=== PATIENT | female | born 1950 | race African-American/Black ===

== ENCOUNTER 2017-01-13 05:15 | Inpatient (IN) | payer OTHER ==
[~2017-01-13] VITALS: Ht 152.4 cm; Wt 92.1 kg
[2017-01-13 05:16] VITALS: BP 97/66
[2017-01-13 06:16] LABS: URINE BILIRUBIN NEGATIVE (Negative); URINE BLOOD NEGATIVE (Negative); URINE COLOR YELLOW; URINE GLUCOSE-RANDOM* NEGATIVE (Negative); URINE KETONES NEGATIVE (Negative); URINE LEUKOCYTES-REFLEX NEGATIVE (Negative); URINE PROTEIN (DIPSTICK) NEGATIVE (Negative); URINE SPECIFIC GRAVITY <= 1.005 (1.003-1.035); URINE UROBILINOGEN 0.2 E.U./dl (0.2-1.0)
[2017-01-13 06:22] LABS: AMP/METHAMP Negative (Negative); BARBITURATES Negative (Negative); BENZODIAZEPINES POSITIVE (Negative); COCAINE Negative (Negative); METHADONE POSITIVE (Negative); OPIATES POSITIVE (Negative); PCP Negative (Negative); THC Negative (Negative)
[2017-01-13 06:31] LABS: CALCIUM 10.2 mg/dL (8.5-10.1); CREATININE 1.6 mg/dL (0.6-1.0); POTASSIUM 3.8 mmol/L (3.5-5.1)
[2017-01-13 06:35] LABS: ABSOLUTE NEUTROPHILS 6.5 thou/uL (1.4-8.2); BASOPHILS 0.2 % (0.0-2.0); EOSINOPHILS 7.8 % (0.0-3.0); HEMATOCRIT 35.3 % (37.0-47.0); HEMOGLOBIN 11.8 gm/dL (12.0-15.0); LYMPHOCYTES 24.8 % (24.0-44.0); MCH 27.8 pg (26.0-34.0); MCHC 33.4 g/dL (28.0-37.0); MCV 83.4 fL (80.0-100.0); MONOCYTES 5.7 % (1.0-8.0); PLATELET COUNT 250 thou/uL (150-400); POLYS 61.5 % (36.0-66.0); RBC 4.23 mil/uL (4.20-5.00); RDW 15.1 % (10.5-14.5); WBC 10.6 thou/uL (4.0-11.0)
[2017-01-13 06:36] LABS: MANUAL DIFF NO
[2017-01-13 07:38] VITALS: BP 93/54
[2017-01-13 08:15] VITALS: BP 109/75
[2017-01-13] MEDS ORDERED: DOLOPHINE HCL10 MG PO (18:23)
[2017-01-13] MEDS ORDERED: LIPITOR 20 MG T20 M1 PO (18:23)
[2017-01-13] MEDS ORDERED: AMITRIPTYLINE H10 M3 PO (18:24)
[2017-01-13 20:05] VITALS: BP 139/87
[2017-01-14 05:30] VITALS: BP 150/88
[2017-01-14 06:01] LABS: ABSOLUTE NEUTROPHILS 7.9 thou/uL (1.4-8.2); BASOPHILS 0.6 % (0.0-2.0); EOSINOPHILS 7.2 % (0.0-3.0); HEMATOCRIT 34.8 % (37.0-47.0); HEMOGLOBIN 11.4 gm/dL (12.0-15.0); LYMPHOCYTES 18.3 % (24.0-44.0); MCH 27.3 pg (26.0-34.0); MCHC 32.8 g/dL (28.0-37.0); MCV 83.2 fL (80.0-100.0); MONOCYTES 6.2 % (1.0-8.0); PLATELET COUNT 262 thou/uL (150-400); POLYS 67.7 % (36.0-66.0); RBC 4.19 mil/uL (4.20-5.00); RDW 15.4 % (10.5-14.5); WBC 11.7 thou/uL (4.0-11.0)
[2017-01-14 06:02] LABS: MANUAL DIFF NO
[2017-01-14 06:11] LABS: CREATININE 0.9 mg/dL (0.6-1.0); POTASSIUM 3.7 mmol/L (3.5-5.1)
[2017-01-14 08:08] VITALS: BP 133/70
[2017-01-14 13:46] VITALS: BP 133/70
== END 2017-01-14 16:05 | disposition home or self-care (01) | DRG 682 ==
LOC: ER 05:15 → EROBS 07:03 → 4E 07:03
PROVIDERS: Emergency Medicine; Family Medicine
DX: N17.9 Acute kidney failure, unspecified (principal); G92 Toxic encephalopathy; G89.29 Other chronic pain; F41.9 Anxiety disorder, unspecified; N28.9 Disorder of kidney and ureter, unspecified; J45.909 Unspecified asthma, uncomplicated; Z79.899 Other long term (current) drug therapy
CPT/HCPCS: 10183